=== PATIENT | male | born 2000 | race Caucasian/White ===

== ENCOUNTER 2022-08-06 19:13 | Emergency (ER) | payer MEDICAID, SELFPAY ==
[2022-08-06 19:13] VITALS: BP 132/72; PULSE 98; RESP 20; TEMP 36.8; O2SAT 99; BMI 29.5
--- NOTE | 2022-08-06 19:53 | ECG_ITS ---
APPROVED REPORT Exam: Resting ECG HR:87 bpm ECG Measurements Heart Rate 87 AXES TX 123 P -7 QRSd 86 QRS 61 QT 362 T 39 QTc 407 Conclusion SINUS RHYTHM NORMAL ECG UNCONFIRMED REPORT Electronically signed by : Edgar San MD 08/07/2022 13:27:32
--- NOTE | 2022-08-06 19:58 | PC.NURSE ---
Pt moved to ED room 8 from [facility] bed
[2022-08-06 20:05] LABS: Coronavirus 19, PCR Not Detected (NotDetected); Influenza A, PCR Not Detected (NotDetected); Influenza B, PCR Not Detected (NotDetected)
[2022-08-06 20:05] LABS: Microscopic, Urine URINE MICROSCOPIC (MICROSCOPIC)
[2022-08-06 20:24] LABS: Basophils # 0.1 K/mm3 (0-0.2); Basophils % 0.7 % (0.1-2.0); Eosinophils # 0.1 K/mm3 (0.0-0.4); Eosinophils % 1.8 % (0.1-12.0); Hematocrit 41.9 % (42.0-52.0); Hemoglobin 13.8 g/dL (14.1-18.0); Lymphocytes # 2.6 K/mm3 (0.7-4.5); Lymphocytes % 33.3 % (10-50); Mean Corpuscular Hemoglobin 30.2 pg (27.0-31.2); Mean Corpuscular Volume 91.6 fl (80-94); Mean Platelet Volume 7.4 fl (7.4-10.4); Monocytes # 0.7 K/mm3 (0.1-1.0); Monocytes % 8.8 % (1.7-9.3); Neutrophils # 4.4 K/mm3 (1.8-7.8); Neutrophils % 55.4 % (37.0-80.0); Platelet Count 309 K/mm3 (142-424); Red Blood Count 4.57 M/mm3 (4.60-6.20); Red Cell Distribution Width 13.8 % (11.5-17.5); White Blood Count 7.9 K/mm3 (4.8-10.8)
[2022-08-06 20:26] LABS: Appearance,Urine CLEAR (Clear); Bilirubin,Urine Negative (Negative); Blood, Urine Negative (Negative); Color,Urine YELLOW (Yellow); Glucose,Urine (UA) Negative (Negative); Ketones,Urine TRACE (Negative); Leukocyte Esterase,Urine Negative (Negative); Nitrate,Urine Negative (Negative); Protein,Urine Negative (Negative); Specific Gravity, Urine 1.025 (1.005-1.030); Urobilinogen,Urine 0.2 EU/dl (0.2)
[2022-08-06 20:30] LABS: Chloride 105 mmol/L (98-107); Potassium 4.1 mmoL/L (3.5-5.1); Sodium 144 mmol/L (136-145)
[2022-08-06 20:32] LABS: Alanine Aminotransferase 23 U/L (12-78); Aspartate Amino Transferase 32 U/L (17-59); Blood Urea Nitrogen 15 mg/dl (9-20); Creatinine Clearance Estimated 210 mL/min (50-200); Estimated Glomerular Filt Rate 119 ml/min (>60); GFR (African American) 144 ML/MIN (>60)
[2022-08-06 20:33] LABS: Albumin Level 4.6 g/dl (3.5-5.0); Albumin/Globulin Ratio 1.8 (1.1-1.8); Alkaline Phosphatase 53 U/L (38-126); Anion Gap 13.1 mEq/L (5-15); Bilirubin,Total 0.3 mg/dl (0.2-1.3); Carbon Dioxide 30 mmol/L (22.0-30.0); Ethyl Alcohol < 10 mg/dl (0-10); Globulin 2.6 g/dL (1.3-3.2); Glucose 82 mg/dl (74-100); Salicylate < 1.0 mg/dL (2.0-20.0); Total Protein,Serum 7.2 g/dl (6.3-8.2)
[2022-08-06 20:34] LABS: Acetaminophen < 10 ug/ml (10-30)
--- NOTE | 2022-08-06 20:35 | XR_ITS ---
PROCEDURE INFORMATION: Exam: XR Chest Exam date and time: 08/06/2022 8:33 PM Age: 22 years old Clinical indication: Injury or trauma; Blunt trauma (contusions or hematomas); Patient HX: Fall down stairs TECHNIQUE: Imaging protocol: Radiologic exam of the chest. Views: 4 or more views. COMPARISON: No relevant prior studies available. FINDINGS: Lungs: Low lung volumes. Pulmonary vasculature grossly normal. No gross pulmonary infiltrates or edema pattern. Pleural spaces: No pleural effusion. No pneumothorax. Heart/Mediastinum: Heart size normal. No tracheal/mediastinal shift. Bones/joints: No acute osseous abnormalities are identified. Short segment expansile lytic bone lesion in the right lateral 8th rib measuring roughly 18 mm in length by 13 mm diameter with intact cortical margins, internal sclerotic elements, and no aggressive periostitis. This could represent fibrous dysplasia or possibly an old healed fracture. IMPRESSION: 1. No acute thoracic injuries are identified. 2. 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
--- NOTE | 2022-08-06 20:35 | XR_ITS ---
PROCEDURE INFORMATION: Exam: XR Pelvis Exam date and time: 08/06/2022 8:34 PM Age: 22 years old Clinical indication: Injury or trauma; Blunt trauma (contusions or hematomas); Does not apply; Pelvic region; Patient HX: Fall down stairs TECHNIQUE: Imaging protocol: Radiologic exam of the pelvis. Views: 1 or 2 view. COMPARISON: No relevant prior studies available. FINDINGS: Bones/joints: No fracture. Hip joints are well aligned. Hip joint spaces and articular surfaces are grossly well-maintained. No radiographic evidence to suggest transient osteoporosis or avascular necrosis. No blastic or lytic lesions. The SI joints are unremarkable. The pubic symphysis is unremarkable. Soft tissues: No gross soft tissue abnormalities. Other findings: No gross sacrococcygeal abnormalities. IMPRESSION: No acute findings.
--- NOTE | 2022-08-06 20:40 | PC.NURSE ---
PT gone to RAD for Xray
[2022-08-06 20:44] LABS: Bacteria,Urine Trace /lpf; WBC,Urine Occasional #/hpf (0-3)
--- NOTE | 2022-08-06 20:45 | PC.NURSE ---
Pt back from RAD
[2022-08-06 20:54] LABS: Benzodiazepines Screen,Urine Negative ng/ml (<200)
[2022-08-06 20:55] LABS: Amphetamine/Metha Screen,Urine Negative ng/ml (<1000); Barbiturates Screen,Urine Negative ng/ml (<200)
[2022-08-06 20:56] LABS: Methadone Screen,Urine Negative ng/ml (<300)
[2022-08-06 20:57] LABS: Cannabinoid Screen,Urine Negative ng/ml (<50); Cocaine Screen,Urine Negative ng/ml (<300)
[2022-08-06 20:58] LABS: Opiate Screen,Urine Negative ng/ml (<300)
[2022-08-06 20:59] LABS: Phencyclidine Screen,Urine Negative ng/ml (<25)
[2022-08-06 21:07] VITALS: BP 110/65; PULSE 76; O2SAT 95
--- NOTE | 2022-08-06 21:19 | HMH.EDPSYCH ---
Discharge Plan Disposition Patient Disposition: Xfer Psychiatric Hosp Prescriptions Prescriptions: No Action haloperidol 5 mg tablet 5 mg PO DAILY divalproex 500 mg tablet extended release 24 hr 500 mg PO DAILY hydroxyzine pamoate 25 mg capsule 25 mg PO DAILYP PRN (Reason: aggitation) Referrals Follow up/Referrals: Provider,Referral, MD [Primary Care Provider] - See instructions Clinical Impressions Clinical Impression: Depression, Suicidal ideation Discharge ED Provider: Zhou John Psych HPI General Chief Complaint: Psychiatric Symptoms Stated Complaint: Fell down 8 steps/SI Time Seen by Provider: 08/06/22 20:10 Mode of Arrival: EMS Source of Information: Patient, EMS and Medical Record Description of Symptoms (Recalled from ER Triage Doc. by RN): Pt jumped down 8 steps at long-term and landed opn his bottom. He c/o pain to her talk-bone. Denies any head or neck pain. Denies any SOB or dyspnea. He denies any difficulty with ambulation. Pt reports he wanted to inflict some damage to myself because I am depressed and miss my family. Clear, equal breath sounds. History of Present Illness HPI Narrative: reported as to having thought of self harm and jumped down steps at nursing home - reports being depressed and has thoughts of self - harm complaint: suicidal ideation and feels depressed Onset (ago): hour(s) History of same: Yes Associated psychiatric symptoms: depression and suicidal ideation Associated symptoms: denies other symptoms Treatments prior to arrival: none If self harm: admits thoughts of self harm and self-inflicted trauma Related Data Home Medications Medication Instructions Recorded Confirmed divalproex 500 mg tablet,extended 500 mg PO DAILY mood 08/06/22 08/06/22 release 24 hr haloperidol 5 mg tablet 5 mg PO DAILY bipolar 08/06/22 08/06/22 hydroxyzine pamoate 25 mg capsule 25 mg PO DAILYP PRN aggitation 08/06/22 08/06/22 Allergies Allergy/AdvReac Type Severity Reaction Status Date / Time No Known Allergies Allergy Verified 08/06/22 20:11 PFSH PFS Social History Smoking Status: Current every day smoker alcohol intake: never current occupational status: unemployed Travel in the last 8 weeks: None ROS Obtained: Yes All systems reviewed & no additional complaints except as documented Physical Exam General General appearance: alert Head Head exam: normocephalic Eye Eye exam: Present PERRL and EOMI; Absent scleral icterus or nystagmus ENT ENT exam: Present mucous membranes moist Neck Neck exam: Present trachea midline and other (cleared with tanzanian criteria ); Absent tenderness Respiratory Respiratory exam: Present normal lung sounds bilaterally Cardiovascular Cardiovascular exam: Present regular rate Abdominal Exam Abdominal exam: Present soft Extremities Exam Extremities exam: Present full ROM; Absent joint swelling Back Exam Back exam: Present normal inspection Neurological Exam Neurological exam: Present alert, oriented X3, CN II-XII intact and other (gcs=15); Absent motor sensory deficit Psychiatric Psychiatric exam: Present depressed and suicidal ideation Skin Skin exam: Present intact Medical Decision Making Medical Records Medical records reviewed: Yes I reviewed the patient's medical records. Stefan Inquiry Pt receiving controlled substance: No Vital Signs: 08/06/22 19:13 08/06/22 21:07 08/06/22 21:31 Temperature 98.2 F Temperature Source Oral Pulse Rate 76 86 Pulse Rate [Right] 98 H Respiratory Rate 20 Blood Pressure 110/65 111/67 Blood Pressure [Right Arm] 132/72 Blood Pressure Mean [Right Arm] 92 02 Sat by Pulse Oximetry 99 95 95 Oxygen Delivery Method Room Air Room Air Room Air Lab Data Lab results reviewed: Yes I reviewed the patient's lab results. Lab Results 08/06/22 19:16: Urine Color Yellow, Urine Appearance Clear, Urine pH 7.0, Ur Specific [place] 1.025, Urine Protein Negative
[2022-08-06 21:31] VITALS: BP 111/67; PULSE 86; O2SAT 95
--- NOTE | 2022-08-06 21:55 | PC.NURSE ---
león has signed form, Judge Thompson is on-call. Dispatch contacted the president practicing urologist
[2022-08-06 22:01] VITALS: BP 104/68; PULSE 86; O2SAT 97
--- NOTE | 2022-08-06 22:30 | PC.NURSE ---
lawn service supervisor received fax back from the superior court judge however, format will not allow staff to open of print signed form. attemtping to have it resigned.
--- NOTE | 2022-08-06 23:00 | PC.NURSE ---
still no response from court of appeals judge. here and may attempt to take to his home to sign.
--- NOTE | 2022-08-06 23:20 | PC.NURSE ---
Electronic Warfare Officer called ER back and re--sent form in PDF format. This was received and able to complete.
--- NOTE | 2022-08-06 23:30 | PC.NURSE ---
Faxed form to [facility] ([place], [place])ta
--- NOTE | 2022-08-06 23:35 | PC.NURSE ---
called [facility] and gave information for provider to call back. Prepped tablet for zoom meeting.
--- NOTE | 2022-08-07 00:06 | PC.NURSE ---
[facility] provider called. Set up zoom meeting and he is s/w pt.
--- NOTE | 2022-08-07 00:15 | PC.NURSE ---
Alek from [facility] called to advise they would be accepting the pt
--- NOTE | 2022-08-07 00:24 | PC.NURSE ---
Updated Crystal with Esthela that pt would be going to [facility]
--- NOTE | 2022-08-07 00:34 | PC.NURSE ---
Notified Jose GONSALVES dispatch of need for pt transport to [facility]
[2022-08-07 01:18] VITALS: BP 105/70; PULSE 86; RESP 18; TEMP 36.6; O2SAT 99
--- NOTE | 2022-08-07 08:19 | PC.NURSE ---
pt was sent back to the ER due to paperwork for [facility] needing to be signed by a heat treat furnace operator. Currently working to get the appropriate paperwork corrected for transportation to [facility]. HS and marketing effectiveness manager aware
--- NOTE | 2022-08-07 10:00 | PC.NURSE ---
pt resting in bed, no needs at this time, awaiting for paper work at this time
--- NOTE | 2022-08-07 12:00 | PC.NURSE ---
appropriate paperwork completed and pt is transported to [facility] via police department.
== END 2022-08-07 12:00 ==
PROVIDERS: Emergency Provider Emergency Medicine
DX: R45.851 Suicidal ideations (principal); F32.A Depression, unspecified; M53.3 Sacrococcygeal disorders, not elsewhere classified; Y93.39 Activity, other involving climbing, rappelling and jumping off; Y92.009 Unspecified place in unspecified non-institutional (private) residence as the place of occurrence of the external cause; Z79.899 Other long term (current) drug therapy; Z72.0 Tobacco use
CPT/HCPCS: 71045; 72170; 80053; 80305; 80329; 81001; 85025; 93005; 99285; C9803; U0003; U0005

== ENCOUNTER 2023-02-26 18:27 | Emergency (ER) | payer MEDICAID, SELFPAY ==
[2023-02-26 18:27] VITALS: BP 146/85; PULSE 100; RESP 18; TEMP 37.3; O2SAT 100; BMI 30.4
--- NOTE | 2023-02-26 18:31 | PC.NURSE ---
DR KING AT BEDSIDE
--- NOTE | 2023-02-26 18:34 | XR_ITS ---
PROCEDURE INFORMATION: Exam: XR Chest Exam date and time: 02/26/2023 6:35 PM Age: 22 years old Clinical indication: Cough and fever; Smoker's cough; Additional info: Productive cough and fever TECHNIQUE: Imaging protocol: Radiologic exam of the chest. Views: 2 views. Total images: 2 COMPARISON: CR XR CHEST AP 08/06/2022 8:33 PM FINDINGS: Lungs: Unremarkable. No consolidation. No pulmonary vascular congestion or edema. Pleural spaces: Unremarkable. No pleural effusion. No pneumothorax. Heart/Mediastinum: Unremarkable. No cardiomegaly. No mediastinal widening or hilar enlargement. Bones/joints: Stable expansile bone lesion anterior right 8th rib either sequela of remote injury or possible fibrous dysplasia. No aggressive features. Minor upper thoracic levocurvature, likely rotational. IMPRESSION: 1. No radiographically acute cardiopulmonary process. 2. Stable benign-appearing bone lesion right 8th rib.
--- NOTE | 2023-02-26 18:34 | HMH.EDGENADL ---
Discharge Plan Disposition Patient Disposition: Home, Self-Care Condition: Good Prescriptions Prescriptions: New benzonatate 100 mg capsule 100 mg PO BID PRN (Reason: cough) Qty: 10 0RF No Action divalproex 500 mg tablet,delayed release (DR/EC) See Rx Instructions .ROUTE .COMPLEX Qty: 60 11RF Dose Instruction: GIVE 1 TABLET BY MOUTH TWICE DAILY Rx Instructions: GIVE 1 TABLET BY MOUTH TWICE DAILY metoprolol tartrate 25 mg tablet 12.5 mg PO BID Qty: 30 6RF aripiprazole 10 mg tablet 10 mg PO DAILY Qty: 30 6RF haloperidol 5 mg tablet 5 mg PO DAILY hydroxyzine pamoate 25 mg capsule 25 mg PO DAILYP PRN (Reason: aggitation) Referrals Follow up/Referrals: Provider,Referral, MD [Primary Care Provider] - See instructions Activity Restrictions/Add. Instructions Additional Instructions/Restrictions: Stop smoking. Return to the emergency department immediately if you feel worse in any way. Your chest x-ray today did not show any pneumonia. I have prescribed you some Tessalon Perles which may help you with the urge to cough. I feel that your illness is most likely due to a virus which will get better on its own. Follow-up with your primary care doctor in about 3 to 5 days if you do not improve. Clinical Impressions Clinical Impression: Bronchitis Instructions Patient Instructions: DI for Acute Bronchitis Discharge ED Provider: Tehresa Cuenca Adult HPI General Chief complaint: Upper Respiratory Infection Stated complaint: COUGH, CONGESTION FEVER Time Seen by Provider: 02/26/23 18:34 Mode of Arrival: EMS Limitations: No Limitations Description of Symptoms (Recalled from ER Triage Doc. by RN): PT AMBULATORY VIA EMS FOR 2 WEEK HX OF COUGH, CONGESTION, FEVER AND MID BACK PAIN History of Present Illness HPI narrative: The patient presents to the emergency department complaining of a 2-week history of productive cough and low-grade fever. He smokes about half a pack a day. He denies any shortness of breath. He does complain of some mild mid back pain. He denies a history of pulmonary emboli or DVTs. Related Data Home Medications Medication Instructions Recorded Confirmed haloperidol 5 mg tablet 5 mg PO DAILY bipolar 08/06/22 08/06/22 hydroxyzine pamoate 25 mg capsule 25 mg PO DAILYP PRN aggitation 08/06/22 08/06/22 Previous Rx's Medication Instructions Recorded aripiprazole 10 mg tablet 10 mg PO DAILY #30 tabs 08/29/22 divalproex 500 mg tablet,delayed See Rx Instructions .Route 08/29/22 release .COMPLEX #60 ea metoprolol tartrate 25 mg tablet 12.5 mg PO BID #30 tabs 08/29/22 benzonatate 100 mg capsule 100 mg PO BID PRN cough #10 caps 02/26/23 Allergies Allergy/AdvReac Type Severity Reaction Status Date / Time No Known Allergies Allergy Verified 08/06/22 20:11 [facility] Disclaimer: The information contained in this section may have been updated after the patient was seen, as this information can be updated by other users. Social History (Updated 08/06/22 @ 21:55 by Zhou John MD) Smoking Status: Current every day smoker alcohol intake: never current occupational status: unemployed Travel in the last 8 weeks: None ROS Obtained: Yes All systems reviewed & no additional complaints except as documented Physical Exam General General appearance: alert Head Head exam: atraumatic Eye Eye exam: Present normal appearance ENT ENT exam: Present normal exam Neck Neck exam: Present normal inspection and full ROM; Absent tenderness or meningismus Chest Chest inspection: Present normal inspection and symmetric chest wall rise; Absent tenderness Respiratory Respiratory exam: Present normal lung sounds bilaterally; Absent respiratory distress or accessory muscle use Cardiovascular Cardiovascular exam: Present regular rate, normal rhythm and normal heart sounds Abdominal Exam Abdominal exam: Present soft and normal bowel sounds;
--- NOTE | 2023-02-26 18:43 | PC.NURSE ---
PT TO XR
--- NOTE | 2023-02-26 18:47 | PC.NURSE ---
PT RETURNED FROM XR
--- NOTE | 2023-02-26 19:06 | PC.NURSE ---
Called [facility] for pt transportation. They advised they did not have a way to get him back and he would have to wait until third shift was there or he could walk if his guardian allowed it.
[2023-02-26 19:13] VITALS: BP 140/82; PULSE 91; RESP 18; TEMP 37.3
== END 2023-02-26 19:14 | disposition home or self-care (01) ==
PROVIDERS: Emergency Provider Emergency Medicine
DX: J40 Bronchitis, not specified as acute or chronic (principal); R50.9 Fever, unspecified; M54.6 Pain in thoracic spine; F17.200 Nicotine dependence, unspecified, uncomplicated
CPT/HCPCS: 71046; 99283; 99284